=== PATIENT | female | born 1955 | race Caucasian/White ===

== ENCOUNTER → 2016-03-03 | Outpatient (CLI) | payer BC ==
[2016-03-03 18:04] LABS: ALT/SGPT 44 U/L (12-78); AST/SGOT 33 U/L (15-37); BLOOD UREA NITROGEN 23 mg/dl (7-18); BUN/CREATININE RATIO 19.3 (10-20); CARBON DIOXIDE 29 mmol/L (21-32); CHLORIDE 102 mmol/L (98-107); GLUCOSE 122 mg/dl (70-99); POTASSIUM 4.9 mmol/L (3.5-5.1); SODIUM 140 mmol/L (136-145)
[2016-03-03 18:05] LABS: BASO % 0.5 %; BASO ABS # 0.02 K/uL (0-0.2); COMPLETE YES; HEMATOCRIT 38.1 % (37-47); IG% 0.3 %; LYMPH % 39.4 %; LYMPH ABS # 1.57 K/uL (1.2-3.4); MEAN CELL VOLUME 89.4 fL (80-100); MEAN CORPUSCULAR HEMOGLOBIN 30.3 pg (25-34); MEAN CORPUSCULAR HGB CONC 33.9 g/dl (32-36); MEAN PLATELET VOLUME 9.2 fL (7.4-10.4); MONO % 9.8 %; PLATELET COUNT 297 K/uL (130-400); RED BLOOD COUNT 4.26 M/uL (4.2-5.4); WHITE BLOOD COUNT 3.98 K/uL (4.8-10.8)
[2016-03-03 18:13] LABS: ALKALINE PHOSPHATASE 167 U/L (45-117); CHOLESTEROL 208 mg/dl (0-200); FERRITIN 94.1 ng/ml (8.0-388.0); HDL CHOLESTEROL 69 mg/dl; LDL CHOLESTEROL CALCULATED 104 mg/dl; TRIGLYCERIDES 175 mg/dl (0-150); VERY LOW DENSITY LIPOPROT CALC 35 mg/dl
== END | disposition home or self-care (01) ==
LOC: C.LABMFLN 08:47
PROVIDERS: ATTEND Family Medicine
DX: Z98.84 Bariatric surgery status (principal); I10 Essential (primary) hypertension; E04.1 Nontoxic single thyroid nodule

== ENCOUNTER → 2016-03-28 | Outpatient (CLI) | payer BC ==
--- NOTE | 2016-03-28 12:10 | DIAGNOSTIC IMAGING REPORT ---
MRI OF THE LUMBAR SPINE WITHOUT IV CONTRAST CLINICAL HISTORY: Low back pain and lower extremity numbness. COMPARISON STUDY: No priors. TECHNIQUE: MRI of the lumbar spine is performed utilizing various T1 and T2-weighted sequences in the axial and sagittal planes. IV contrast was not administered for this examination. The examination is degraded by open MRI technique. FINDINGS: Lumbar spine: Vertebral body height and alignment are maintained throughout the lumbar spine. Normal marrow signal intensity is preserved throughout the visualized bony structures. A large hemangioma is present in the body of L3. No destructive bony lesion is seen. There is no evidence of spondylolysis. The transverse and spinous processes appear intact. Intervertebral discs: There is moderate degenerative disc desiccation throughout the lumbar spine. The disc spaces appear preserved. Spinal cord: Partially imaged spinal cord is normal in morphology and signal intensity. The conus medullaris terminates at the level of L1-L2. L1-L2: There is minimal posterior disc bulge. The central canal and neural foramina are patent. L2-L3: Unremarkable. L3-L4: There is a small posterior disc bulge. There is no significant central canal stenosis. The neural foramina are patent. Minimal facet arthropathy is of no consequence. L4-L5: There is broad-based posterior disc bulge with annular fissure. In conjunction with hypertrophy of the ligamentum flavum, there is mild to moderate central canal stenosis at this level with a minimum AP diameter of 7 mm. There is bilateral subarticular stenosis. The neural foramina are patent. Mild facet arthropathy is of no consequence. L5-S1: There is minimal posterior disc bulge. The central canal and neural foramina are patent. There is mild bilateral subarticular stenosis. Facet arthropathy causes minimal bilateral neural foraminal stenosis. Sacrum: The partially imaged sacrum is normal in morphology and signal intensity. A Tarlov's cyst is seen at the level of S3 and measures up to 2.2 cm. Soft tissues: There is mild fatty atrophy of the paraspinous musculature. The partially imaged retroperitoneal structures are grossly unremarkable, but incompletely assessed. IMPRESSION: 1. Lumbosacral spondylosis as above with mild to moderate acquired compromise of the central canal at L4-L5. See discussion for detailed level by level analysis. 2. No destructive bony lesion is identified. Dictated: 03/28/2016 11:59 AM Transcribed: 03/28/2016 12:09 PM LILO_Harpreet Electronically signed by: Mac Jauregui M.D. 03/28/2016 12:10 PM Dictated Date/Time: 03/28/2016 11:59 AM
== END | disposition home or self-care (01) ==
LOC: C.OPENMRI 09:53
PROVIDERS: ATTEND Family Medicine
DX: M48.00 Spinal stenosis, site unspecified (principal); M47.817 Spondylosis without myelopathy or radiculopathy, lumbosacral region

== ENCOUNTER → 2016-07-22 | Outpatient (CLI) | payer BC ==
[2016-07-22 13:34] LABS: BLOOD UREA NITROGEN 21 mg/dl (7-18)
[2016-07-22 13:42] LABS: ESTIMATED AVERAGE GLUCOSE 126 mg/dl; HA1C FLAG Normal (Normal)
== END ==
LOC: C.LABMFLN 12:08
PROVIDERS: ATTEND Family Medicine
DX: R73.01 Impaired fasting glucose (principal)

== ENCOUNTER → 2016-07-27 | Outpatient (CLI) | payer BC ==
[~2016-07-27] MED LIST: GADAVIST IV PRN
--- NOTE | 2016-07-27 12:11 | DIAGNOSTIC IMAGING REPORT ---
CERVICAL SPINE MRI WITH AND WITHOUT CONTRAST HISTORY: CHRONIC NECK PAIN TECHNIQUE: Multiplanar multisequence MRI of the cervical spine was performed both before and after the use of intravenous contrast. COMPARISON STUDY: None. FINDINGS: Anterior cervical discectomy and fusion seen from C5 through C7. No fracture or subluxation within the cervical spine. A 6 mm hemangioma at the C3 vertebral body. Prevertebral soft tissues and the C1-C2 interval are intact. Mild disc space narrowing at C4-C5. The visualized posterior fossa is unremarkable. The cervical spinal cord demonstrates a normal signal intensity. No abnormal enhancement. C2-C3: No significant central canal or neural foraminal narrowing. C3-C4: Small broad-based posterior disc bulge without significant central canal narrowing. There is mild right-sided neural foraminal narrowing. C4-C5: Small broad-based posterior disc bulge with a small right paracentral focal disc protrusion which abuts and slightly deforms the right anterior cord. There is also mild bilateral neural foraminal narrowing. C5-C6: No significant central canal narrowing. Severe right-sided neural foraminal narrowing due to the uncovertebral and facet hypertrophy. C6-C7: No significant central canal narrowing. Mild right neural from narrowing due to the uncovertebral hypertrophy. C7-T1: No significant central canal or neural foraminal narrowing. IMPRESSION: 1. Anterior cervical discectomy and fusion from C5 through C6. 2. Small broad-based posterior disc bulge with a small right paracentral focal disc protrusion at C4-C5. This abuts and slightly deforms anterior cord. 3. Multilevel bilateral neural foraminal narrowing as described above. Electronically signed by: Ricardo Rocha M.D. 07/27/2016 12:09 PM Dictated Date/Time: 07/27/2016 11:58 AM
== END | disposition home or self-care (01) ==
LOC: C.OPENMRI 09:55
PROVIDERS: ATTEND Family Medicine
DX: M54.2 Cervicalgia (principal)

== ENCOUNTER → 2016-08-05 | Outpatient (CLI) | payer BC ==
[2016-08-05 18:16] LABS: BLOOD UREA NITROGEN 41 mg/dl (7-18); BUN/CREATININE RATIO 22.7 (10-20); CALCIUM 8.7 mg/dl (8.5-10.1); CARBON DIOXIDE 23 mmol/L (21-32); CHLORIDE 110 mmol/L (98-107); GLUCOSE 135 mg/dl (70-99); POTASSIUM 4.4 mmol/L (3.5-5.1); SODIUM 141 mmol/L (136-145)
== END | disposition home or self-care (01) ==
LOC: C.LABMFLN 13:40
PROVIDERS: ATTEND Family Medicine
DX: E86.0 Dehydration (principal)

== ENCOUNTER → 2016-08-15 | Outpatient (CLI) | payer BC ==
[2016-08-15 14:18] LABS: BLOOD UREA NITROGEN 17 mg/dl (7-18); BUN/CREATININE RATIO 15.7 (10-20); CALCIUM 8.6 mg/dl (8.5-10.1); CARBON DIOXIDE 24 mmol/L (21-32); CHLORIDE 112 mmol/L (98-107); GLUCOSE 102 mg/dl (70-99); POTASSIUM 4.8 mmol/L (3.5-5.1); SODIUM 144 mmol/L (136-145)
[2016-08-15 14:19] LABS: RHEUMATOID FACTOR < 10.0 U/mL (0-15)
== END | disposition home or self-care (01) ==
LOC: C.LABMFLN 09:52
PROVIDERS: ATTEND Family Medicine
DX: N28.9 Disorder of kidney and ureter, unspecified (principal); M25.50 Pain in unspecified joint

== ENCOUNTER → 2016-08-22 | Outpatient (CLI) | payer BC ==
[2016-08-22 18:40] LABS: BLOOD UREA NITROGEN 23 mg/dl (7-18); BUN/CREATININE RATIO 19.3 (10-20); CALCIUM 9.1 mg/dl (8.5-10.1); CARBON DIOXIDE 26 mmol/L (21-32); CHLORIDE 107 mmol/L (98-107); GLUCOSE 93 mg/dl (70-99); POTASSIUM 5.3 mmol/L (3.5-5.1); SODIUM 139 mmol/L (136-145)
[2016-08-22 18:41] LABS: PHOSPHORUS 3.4 mg/dl (2.5-4.9)
== END | disposition home or self-care (01) ==
LOC: C.LABMFLN 16:51
PROVIDERS: ATTEND Family Medicine
DX: R73.01 Impaired fasting glucose (principal); K90.9 Intestinal malabsorption, unspecified; E53.8 Deficiency of other specified B group vitamins; E55.9 Vitamin D deficiency, unspecified

== ENCOUNTER → 2016-08-25 | Outpatient (CLI) | payer BC ==
[2016-08-25 18:30] LABS: POTASSIUM 4.9 mmol/L (3.5-5.1)
[2016-08-25 18:39] LABS: FERRITIN 39.3 ng/ml (8.0-388.0)
== END | disposition home or self-care (01) ==
LOC: C.LABMFLN 16:18
PROVIDERS: ATTEND Family Medicine
DX: I10 Essential (primary) hypertension (principal); D50.9 Iron deficiency anemia, unspecified

== ENCOUNTER → 2016-09-22 | Outpatient (CLI) | payer BC ==
--- NOTE | 2016-09-22 11:49 | DIAGNOSTIC IMAGING REPORT ---
(CHEST) THORAX WITHOUT CT DOSE: 760.90 mGycm HISTORY: Abnormal bone scan LUNG INFILTRATE ON CT TECHNIQUE: Multiaxial CT images of the chest were performed without contrast. A dose lowering technique was utilized adhering to the principles of ALARA. COMPARISON: None. Outside studies are not available for comparison. FINDINGS: The lungs are clear. The mediastinal vascular structures are within normal limits. No mediastinal or hilar lymphadenopathy. No pleural effusion or pneumothorax. Limited views of the upper abdomen demonstrate a normal liver and spleen. Postoperative changes to the distal esophagus and stomach. Prior cholecystectomy. Prior gastric banding procedure. 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 IMPRESSION: Postoperative changes as described. No acute process of the chest. The above report was generated using voice recognition software. It may contain grammatical, syntax or spelling errors. Electronically signed by: Josse Gann M.D. 09/22/2016 11:48 AM Dictated Date/Time: 09/22/2016 11:43 AM
== END | disposition home or self-care (01) ==
LOC: C.CTS 11:29
PROVIDERS: ATTEND Family Medicine
DX: R91.8 Other nonspecific abnormal finding of lung field (principal)

== ENCOUNTER → 2016-10-13 | Outpatient (CLI) | payer BC ==
[2016-10-13 13:20] LABS: BLOOD UREA NITROGEN 20 mg/dl (7-18)
== END | disposition home or self-care (01) ==
LOC: C.LABMFLN 10:47
PROVIDERS: ATTEND Physician Assistant
DX: R25.1 Tremor, unspecified (principal)

== ENCOUNTER → 2016-10-19 | Outpatient (CLI) | payer BC ==
--- NOTE | 2016-10-19 09:01 | DIAGNOSTIC IMAGING REPORT ---
BRAIN COMBO CLINICAL HISTORY: 61 years-old Female presenting with TREMOR in both arms and hands, R/O STROKE. TECHNIQUE: Multisequence, multiplanar MR imaging of the brain was performed before and after the administration of intravenous contrast. IV contrast: 13 mL of Gadavist. COMPARISON: None. FINDINGS: Ventricles and sulci normal in size. Scattered subcortical white matter T2/FLAIR hyperintensity, nonspecific but possibly chronic small vessel ischemic change. No mass effect or midline shift. No hemorrhage or acute territorial infarct. No extra-axial fluid collection. T2 skull base flow voids preserved. No abnormal parenchymal enhancement. Bone marrow signal intensity within the calvarium within normal limits. IMPRESSION: 1. No acute intracranial abnormality. No abnormal enhancement. 2. Nonspecific foci of T2/FLAIR subcortical hyperintensity likely chronic small vessel ischemic change. Electronically signed by: Chandrakant Patel M.D. 10/19/2016 9:00 AM Dictated Date/Time: 10/19/2016 8:57 AM
== END | disposition home or self-care (01) ==
LOC: C.MRI 10-13 11:47
PROVIDERS: ATTEND Physician Assistant
DX: R25.1 Tremor, unspecified (principal)

== ENCOUNTER → 2016-11-11 | Outpatient (CLI) | payer BC ==
[2016-11-17 03:35] LABS: IGA SERUM 191 mg/dL (81-463); TIS TRANS IGA 1 U/mL (<4)
== END | disposition home or self-care (01) ==
LOC: C.LABMFLN 14:01
PROVIDERS: ATTEND Family Medicine
DX: R14.0 Abdominal distension (gaseous) (principal)

== ENCOUNTER → 2017-06-09 | Outpatient (CLI) | payer BC ==
[2017-06-09 12:35] LABS: BASO % 0.7 %; BASO ABS # 0.03 K/uL (0-0.2); EOS % 2.5 %; EOS ABS # 0.11 K/uL (0-0.5); HEMATOCRIT 36.9 % (37-47); HEMOGLOBIN 12.2 g/dL (12.0-16.0); IG# 0.01 K/uL (0.00-0.02); LYMPH % 35.5 %; LYMPH ABS # 1.57 K/uL (1.2-3.4); MEAN CORPUSCULAR HEMOGLOBIN 30.4 pg (25-34); MEAN CORPUSCULAR HGB CONC 33.1 g/dl (32-36); MEAN PLATELET VOLUME 9.6 fL (7.4-10.4); MONO % 6.6 %; MONO ABS # 0.29 K/uL (0.11-0.59); NEUT % 54.5 %; NEUT ABS # 2.41 K/uL (1.4-6.5); PLATELET COUNT 288 K/uL (130-400); RED CELL DISTRIBUTION WIDTH CV 13.2 % (11.5-14.5); RED CELL DISTRIBUTION WIDTH SD 44.3 fL (36.4-46.3); WHITE BLOOD COUNT 4.42 K/uL (4.8-10.8)
[2017-06-09 13:12] LABS: HEMOGLOBIN A1C 5.6 % (4.5-5.6)
[2017-06-09 13:38] LABS: ALBUMIN 3.5 gm/dl (3.4-5.0); ALT/SGPT 30 U/L (12-78); AST/SGOT 23 U/L (15-37); BLOOD UREA NITROGEN 18 mg/dl (7-18); CARBON DIOXIDE 26 mmol/L (21-32); CREATININE 1.24 mg/dl (0.60-1.20); GLUCOSE 113 mg/dl (70-99); POTASSIUM 4.9 mmol/L (3.5-5.1); SODIUM 137 mmol/L (136-145)
[2017-06-09 13:42] LABS: ALKALINE PHOSPHATASE 144 U/L (45-117); CHOLESTEROL 181 mg/dl (0-200); LDL CHOLESTEROL CALCULATED 87 mg/dl; TOTAL PROTEIN 6.9 gm/dl (6.4-8.2); TRANSFERRIN 261 mg/dl (200-360)
== END | disposition home or self-care (01) ==
LOC: C.LABMFLN 10:22
PROVIDERS: ATTEND Family Medicine
DX: I10 Essential (primary) hypertension (principal); Z98.84 Bariatric surgery status; R73.01 Impaired fasting glucose; E53.8 Deficiency of other specified B group vitamins; D50.9 Iron deficiency anemia, unspecified; E55.9 Vitamin D deficiency, unspecified

== ENCOUNTER 2019-02-05 07:20 | Observation (INO) ==
--- NOTE | 2019-01-31 10:16 | Anesthesiology Consultation ---
Date of Service January 31, 2019 Assessment & Plan (1) Encounter for pre-operative examination: Chart Review Chart Review: Acceptable Risk for Surgery and Patient NOT seen in Pre Admission Testing Consults Requested none History Surgery Operation Date: 02/04/19 10:45 Proposed Procedures p Right Breast Lumpectomy with Needle Localization and with Right [place] Lymph Node Biopsy - Deion Wade MD, FACS Height/Weight Height: 5 ft 8 in Weight: 131.542 kg Allergies Allergy/AdvReac Type Severity Reaction Status Date / Time pregabalin [From Lyrica] Allergy Intermediate finger, Verified 01/30/19 13:18 wrist and ankles swelling capsaicin Allergy Mild Kidney Verified 01/30/19 13:18 problems - pt unaware diclofenac Allergy Mild Kidney Verified 01/30/19 13:18 problems - pt unaware Diclopak Allergy Mild Kidney Unverified 10/03/17 10:16 problems adhesive Allergy Unknown RASH Verified 01/30/19 13:18 levofloxacin Allergy Unknown Unknown Verified 01/30/19 13:18 hydromorphone AdvReac Severe Vomiting Verified 01/30/19 13:18 meperidine [From Demerol] AdvReac Severe Vomiting Verified 01/30/19 13:18 Medications Home Medications Medication Instructions Recorded Confirmed Last Taken cholecalciferol (vitamin D3) 50,000 units PO 2XWK #90 cap 08/27/18 01/30/19 Unknown 50,000 unit capsule albuterol sulfate 90 mcg/actuation 2 puffs INHALATION Q4H PRN #18 gm 10/30/18 01/30/19 Unknown aerosol inhaler propranolol 80 mg capsule,24 80 mg PO HS #90 cap 10/30/18 01/30/19 Unknown hr,extended release metformin 500 mg tablet,extended 500 mg PO BID #180 tab 12/04/18 01/30/19 Unknown release 24 hr ascorbic acid (vitamin C) [Vitamin 1 g PO QAM 01/29/19 01/30/19 Unknown C] biotin 1 mg PO DAILY 01/29/19 01/30/19 Unknown duloxetine 30 mg PO HS 01/29/19 01/30/19 Unknown duloxetine 60 mg PO QAM 01/29/19 01/30/19 Unknown enalapril maleate [Vasotec] 10 mg PO QAM 01/29/19 01/30/19 Unknown esomeprazole magnesium 20 mg PO QAM 01/29/19 01/30/19 Unknown mirabegron 50 mg PO HS 01/29/19 01/30/19 Unknown multivitamin 1 tab PO DAILY 01/29/19 01/30/19 Unknown solifenacin [Vesicare] 10 mg PO QAM 01/29/19 01/30/19 Unknown triamterene-hydrochlorothiazid 1 cap PO QAM 01/29/19 01/30/19 Unknown [Dyazide] Past Medical History Medical History Anemia hx Anxiety Arthralgia of multiple sites Bilateral sacroiliitis (Chronic) Breast cancer Right Cervical myelopathy Cervicalgia (Chronic) Chronic back pain Depression (Chronic) Fibromyalgia (Chronic) GERD (gastroesophageal reflux disease) (Chronic) Hypertension (Chronic) Lumbago (Chronic) Lumbar spinal stenosis (Chronic) Multifactorial worst at L4-5 Mixed incontinence urge and stress (Chronic) Morbid obesity with BMI of 45.0-49.9, adult (Chronic) Osteoarthritis (Chronic) Peripheral neuropathy bilateral legs (beginning stages) Pre-diabetes metformin bid 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) Thyroid nodule (Acute) Tremor (Chronic) propranolol daily Past Family History Family History Mother Myocardial infarction Hypertension Diabetes Father Hypertension Diabetes Heart disease Cancer skin Grandmother (Paternal) Colorectal cancer Past Surgical History Surgical History H/O gastric bypass (Resolved) History of arthroplasty of both knees (Resolved) Left-2006, Right- 07/2013 History of section (Resolved) x2 History of colonoscopy History of esophagogastroduodenoscopy (EGD) History of tonsillectomy Hx of laparoscopic gastric banding "band over bypass surgery" -- still in place but had been "unfilled" d/t severe heartburn. states port has come apart and is near rib cage, (her pcp aware) S/P breast biopsy (Resolved) Right S/P cervical spinal fusion (Resolved) ACDF --> C5-C6, C6-C7 (limited to the right, pain with lifting and looking up to cesar) S/P cholecystectomy (Resolved) S/P dilation and curettage S/P epidural steroid injection S/P thyroid biopsy Status post gastric bypass for obesity (Chronic) Social History Smoking Status: Never smoker Do You Dip or Chew Tobacco: No Hx Alcohol Use: No Hx Substance Use: No substance use type: does not use Testing Laboratory Results Laboratory Tests 01/09/19 01/09/19 01/09/19 09:37 09:37 09:37 WBC 6.66 Hgb 12.0 Hct 36.4 L Plt Count 327 PT 10.3 INR 1.0 APTT 27.3 Sodium 138 Potassium 4.4 Chloride 105 Carbon Dioxide 22 BUN 36 H Creatinine 1.38 H Glucose 107 H Hemoglobin A1c TSH 1.710 Free T4 1.35 01/09/19 09:37 WBC Hgb Hct Plt Count PT INR APTT Sodium Potassium Chloride Carbon Dioxide BUN Creatinine Glucose Hemoglobin A1c 6.1 H TSH Free T4 Electrocardiogram Date: 01/30/19 Findings: + NSR @ Chest X-Ray Date: 06/27/18 Findings: + NAD
[~2019-02-05 07:20] MED LIST changes: +CLINDAMYCIN 900 MG / 50ML D5W IV SCH; -GADAVIST IV PRN; +LR 15ML/HR IV SCH
--- NOTE | 2019-02-05 08:54 | Nuclear Medicine Report ---
NM sentinel node inject only CLINICAL HISTORY: RIGHT BREAST CA COMPARISON STUDY: Diagnostic mammogram January 28, 2019. PROCEDURE: Patient presents today for right breast lymphoscintigraphy. The procedure, risks and benef its were discussed with the patient and informed consent was obtained. The procedure was performed by Dr. Chakraborty following a timeout. Skin of the right breast was prepped. A total of 0.482 mCi of Lym phoseek was injected at 8:25 AM on February 05, 2019 in 5 intradermal aliquots within a right periare olar distribution. The patient tolerated the procedure well and no immediate complications were evide nt. No imaging was requested at this time. IMPRESSION: Right breast lymphoscintigraphy as described above. Electronically signed by: Chetan Chakraborty M.D. 02/05/2019 8:51 AM
[2019-02-05] MEDS ORDERED: METHYLENE BLUE 0.5% 10 ML VIAL ONE (09:43)
[2019-02-05] MEDS ORDERED: BUPIVACAINE 0.5 % 5 MG/1 ML MPF 30ML VIAL ONE (09:43)
[2019-02-05] MEDS ORDERED: MIDAZOLAM HCL 1 MG/ML 2ML VIAL ONE (10:39)
[2019-02-05] MEDS ORDERED: DEXAMETHASONE SOD INJ 4 MG/ML VIAL ONE (10:39)
[2019-02-05] MEDS ORDERED: fentaNYL citrate 100 MCG/2 ML VIAL ONE ×2 (10:39→13:05)
[2019-02-05] MEDS ORDERED: ONDANSETRON INJ 2 MG/ML 2 ML VIAL ONE (10:39)
[2019-02-05] MEDS ORDERED: PROPOFOL IV EMULSION 10 MG/ML 20 ML VIAL IV ONE (10:39)
[2019-02-05] MEDS ORDERED: LIDOCAINE HCL 2% 2 ML VIAL/AMP(20MG/ML) INFIL ONE (10:39)
--- NOTE | 2019-02-05 11:40 | History & Physical Bridge Note ---
Date of Service February 05, 2019 History & Physical Bridge Note I have examined the patient, reviewed the History & Physical and in the interval since the performance of the History & Physical I have noted the following changes of clinical significance: no changes noted
[2019-02-05] MEDS ORDERED: DEXAMETHASONE SOD INJ 4 MG/ML VIAL IV PRN (11:46)
[2019-02-05] MEDS ORDERED: ePHEDrine sulfate 50 MG/ML AMP IV PRN (11:46)
[2019-02-05] MEDS ORDERED: fentaNYL citrate 100 MCG/2 ML VIAL IV PRN (11:46)
[2019-02-05] MEDS ORDERED: ONDANSETRON INJ 2 MG/ML 2 ML VIAL IV PRN ×2 (11:46→14:48)
[2019-02-05] MEDS ORDERED: ATROPINE SULFATE 0.1 MG/ML 10ML SYR IV PRN (11:46)
[2019-02-05] MEDS ORDERED: METOCLOPRAMIDE HCL INJ 5 MG/ML 2 ML VIAL IV PRN (11:46)
[2019-02-05] MEDS ORDERED: PROMETHAZINE HCL 12.5 MG in SODIUM CHLORIDE 0.9% 50 ML IV PRN ×2 (11:46→14:48)
[2019-02-05] MEDS ORDERED: ePHEDrine sulfate 50 MG/ML SYR ONE (12:20)
[2019-02-05] MEDS ORDERED: KETOROLAC 30 MG/ML VIAL ONE (12:52)
[2019-02-05] MEDS ORDERED: ACETAMINOPHEN 1,000 MG/100 ML VIAL IV STA (13:36)
--- NOTE | 2019-02-05 13:36 | Post Operative Brief Note ---
PG Immediate Post Op with CF Date of Surgery February 05, 2019 Pre & Post Diagnosis Operation Date: 02/05/19 12:00 Pre-Op Diagnosis: Right Breast Cancer Post-Op Diagnosis: Right Breast Cancer I identified the patient and participated in the time-out.: Yes Procedure Operation Date: 02/05/19 12:00 Actual Procedures p Right Breast Lumpectomy with Needle Localization and with Right [place] Lymph Node Biopsy(Right) - Deion Wade MD, FACS Surgeon Deion Wade MD, FACS [employer]borne Weapons Technical Manager Elva Boyle Estimated Blood Loss 20 Findings Consistent with Post-Op Diagnosis Specimens Specimen Description: Frozen 1. Right [place] Lymph Node Fresh A. Right Breast Tissue, Needle lateral, tip medial/retro areolar, short silk superior, long silk inferior B. Additional superior Medial Inferior right breast tissue, Short Silk Superior, Long Silk Inferior, Methylene Blue David Granger C. Right Axillary Tissue Drains Micheal-Henson Drain (15fr)
--- NOTE | 2019-02-05 13:52 | Post Operative Brief Note ---
PG Immediate Post Op with CF Date of Surgery February 05, 2019 Pre & Post Diagnosis Operation Date: 02/05/19 12:00 Pre-Op Diagnosis: Right Breast Cancer Post-Op Diagnosis: Right Breast Cancer I identified the patient and participated in the time-out.: Yes Procedure Operation Date: 02/05/19 12:00 Actual Procedures p Right Breast Lumpectomy with Needle Localization and with Right [place] Lymph Node Biopsy(Right) - Deion Wade MD, FACS Axillary Dissection Surgeon Deion Wade MD, FACS Group Counselor Elva Boyle Estimated Blood Loss 20 Findings Consistent with Post-Op Diagnosis Specimens Specimen Description: Frozen 1. Right [place] Lymph Node Fresh A. Right Breast Tissue, Needle lateral, tip medial/retro areolar, short silk superior, long silk inferior B. Additional superior Medial Inferior right breast tissue, Short Silk Superior, Long Silk Inferior, Methylene Blue David Granger C. Right Axillary Tissue Drains Micheal-Henson Drain (15fr)
--- NOTE | 2019-02-05 14:18 | Operative Report ---
DATE OF OPERATION: 02/05/2019 NAME OF OPERATION: Right breast lumpectomy with right sentinel lymph node biopsy and right axillary dissection. PREOPERATIVE DIAGNOSIS: Right breast cancer. POSTOPERATIVE DIAGNOSIS: Right breast cancer with metastatic lymph node. STAFF SURGEON: Deion Wade MD. CRYOGENICS REPAIRER: Pablo Boyle PA-C. ANESTHESIA: General. DESCRIPTION OF PROCEDURE: The patient was brought in the operating room and placed on the operating table in supine position. The right arm was extended on an arm board. She had undergone needle localization and also injection for sentinel lymph node biopsy. Using the Neoprobe, incision was made in the right axillary area using 0.5% plain Marcaine to anesthetize the skin, carrying dissection very deep down into the axilla, sending the lymph node for frozen section. It was very deep secondary to adipose tissue. During the frozen section, lumpectomy was performed, excising the right breast tissue. It was marked with the needle lateral, needle tip medial and retroareolar, short silk suture superior, long silk suture inferior. Additional tissue was taken, which was superior, medial and inferior. It was marked with a short silk suture superior, long silk suture inferior and methylene blue new margin. [place] lymph node came back positive with cancer cells. Axillary dissection was then performed with the tissue sent for permanent section. A 15-round drain placed into the right axilla and secured to the skin using 3-0 nylon suture. Deep tissue in both wounds closed using 2-0 plain suture. Axillary skin closed using interrupted 4-0 nylon suture. Breast skin closed using subcuticular 4-0 Monocryl and Steri-Strips. Dressings were applied and patient was transferred to recovery room in stable condition. I attest to the content of the Intraoperative Record and any orders documented therein. Any exception s are noted below.
--- NOTE | 2019-02-05 14:20 | Operative Report ---
DATE OF OPERATION: 02/05/2019 Addendum to the right breast surgery: The addendum is that my legal assistant Pablo Boyle PA-C helped with prepping, draping, removal of the breast and axillary tissue and closure of the wounds. I attest to the content of the Intraoperative Record and any orders documented therein. Any exception s are noted below.
[2019-02-05] MEDS ORDERED: MoRPHine SULFATE 4 MG/ML 1 ML CARP\\VIAL IV PRN (14:48)
[2019-02-05] MEDS ORDERED: SODIUM CHLORIDE 0.9% 1000ML 1,000 ML IV SCH (14:48)
[2019-02-05] MEDS ORDERED: MoRPHine SULFATE 2 MG/ML CARP IV PRN (14:48)
[2019-02-05] MEDS ORDERED: PROMETHAZINE HCL 25 MG in SODIUM CHLORIDE 0.9% 50 ML IV PRN (14:48)
[2019-02-05] MEDS ORDERED: IBUPROFEN 600 MG TAB PO PRN (14:48)
[2019-02-05] MEDS ORDERED: ALBUTEROL HFA 8 GM INHALER INH PRN (14:48)
[2019-02-05] MEDS ORDERED: ACETAMINOPHEN 325 MG TAB PO PRN (14:48)
--- NOTE | 2019-02-05 15:21 | Anesthesiology Progress Note ---
Date of Service February 05, 2019 Anesthesia Post Procedure Vital Signs Vital Signs: Temp Pulse Pulse Resp BP BP Pulse Ox 02/05/19 15:12 36.6 C 71 16 144/74 H 96 02/05/19 14:48 36.6 C 75 16 153/77 H 93 02/05/19 14:30 36.6 C 69 19 150/71 H 94 02/05/19 14:20 71 16 144/71 H 94 02/05/19 14:05 75 20 146/76 H 97 02/05/19 13:55 74 14 160/73 H 100 02/05/19 13:47 36.9 C 74 21 141/68 H 100 02/05/19 09:12 37.1 C 65 18 147/77 H 99 Pain Intensity Right Breast: Pain Intensity: 0 Transfer of Care Handoff Completed per policy Notes Mental Status: alert / awake / arousable and participated in evaluation Patient Amnestic to Procedure: Yes Nausea / Vomiting: adequately controlled Pain: adequately controlled Airway Patency, RR, SpO2: stable & adequate BP & HR: stable & adequate Hydration State: stable & adequate Anesthetic Complications: no major complications apparent
[2019-02-05] MEDS: HYDROCODONE/ACETAMOPHEN 5/325MG TAB PO PRN ×4 (15:34→23:15)
--- NOTE | 2019-02-05 20:22 | History & Physical Report ---
Date of Service February 05, 2019 Assessment & Plan (1) Hypertension: Blood pressure fluctuating between 1 10 to 140 systolic We will only give propranolol tonight Hold lisinopril and triamterene until renal function testing is established, last creatinine was elevated at 1.34 in December Blood pressure is also not significantly elevated after the surgery. Discussed with patient and her , they understand that we will manage blood pressure meds slightly different (2) Breast cancer, right: Right Breast Lumpectomy with Needle Localization and with Right [place] Lymph Node Biopsy Tolerated procedure well (3) Tremor: We will give the propranolol which will help with blood pressures were (4) Hyperactivity of bladder: Restarted patient [facility] does not carry visit care but patient can take her own meds History of Present Illness Chief Complaint: Medical management Primary Care Provider: Mac Haddad MD 63 years old female with past medical history of essential hypertension, obesity, remote gastric bypass 17 years ago, and anxiety and recently was diagnosed with stage IA primary right breast upper outer quadrant T2, PN 0, M0, G2, ER status positive VT status positive, H ER2/mary status negative. She was admitted for an elective Right Breast Lumpectomy with Needle Localization and with Right [place] Lymph Node Biopsy, tolerated procedure well with no complication. Patient has multiple blood pressure medications. Also has hyperactive bladder on [facility] and Vesicare. She was inquiring about her meds and when and how to take them. We were consulted for medical management. Patient currently has no complaint, denies any diarrhea, burning sensation in the urine, chest pain or shortness of breath Allergies Allergy/AdvReac Type Severity Reaction Status Date / Time pregabalin [From Lyrica] Allergy Intermediate finger, Verified 01/30/19 13:18 wrist and ankles swelling capsaicin Allergy Mild Kidney Verified 01/30/19 13:18 problems - pt unaware diclofenac Allergy Mild Kidney Verified 01/30/19 13:18 problems - pt unaware Diclopak Allergy Mild Kidney Unverified 10/03/17 10:16 problems adhesive Allergy Unknown RASH Verified 01/30/19 13:18 levofloxacin Allergy Unknown Unknown Verified 01/30/19 13:18 hydromorphone AdvReac Severe Vomiting Verified 01/30/19 13:18 meperidine [From Demerol] AdvReac Severe Vomiting Verified 01/30/19 13:18 Home Medications Home Medications Medication Instructions Recorded Confirmed Type cholecalciferol (vitamin D3) 50,000 units PO 2XWK #90 cap 08/27/18 02/05/19 Rx 50,000 unit capsule albuterol sulfate 90 mcg/actuation 2 puffs INHALATION Q4H PRN #18 gm 10/30/18 02/05/19 Rx aerosol inhaler propranolol 80 mg capsule,24 80 mg PO HS #90 cap 10/30/18 02/05/19 Rx hr,extended release metformin 500 mg tablet,extended 500 mg PO BID #180 tab 12/04/18 02/05/19 Rx release 24 hr ascorbic acid (vitamin C) [Vitamin 1 g PO QAM 01/29/19 02/05/19 History C] biotin 1 mg PO DAILY 01/29/19 02/05/19 History duloxetine 30 mg PO HS 01/29/19 02/05/19 History duloxetine 60 mg PO QAM 01/29/19 02/05/19 History enalapril maleate [Vasotec] 10 mg PO QAM 01/29/19 02/05/19 History esomeprazole magnesium 20 mg PO QAM 01/29/19 02/05/19 History mirabegron 50 mg PO HS 01/29/19 02/05/19 History multivitamin 1 tab PO DAILY 01/29/19 02/05/19 History solifenacin [Vesicare] 10 mg PO QAM 01/29/19 02/05/19 History triamterene-hydrochlorothiazid 1 cap PO QAM 01/29/19 02/05/19 History [Dyazide] Past Med/Surg History Medical History Anemia hx Anxiety Arthralgia of multiple sites Bilateral sacroiliitis (Chronic) Breast cancer Right Cervical myelopathy Cervicalgia (Chronic) Chronic back pain Depression (Chronic) Fibromyalgia (Chronic) GERD (gastroesophageal reflux disease) (Chronic) Hypertension (Chronic) Lumbago (Chronic) Lumbar spinal stenosis (Chronic) Multifactorial worst at L4-5 Mixed incontinence urge and stress (Chronic) Morbid obesity with BMI of 45.0-49.9, adult (Chronic) Osteoarthritis (Chronic) Peripheral neuropathy bilateral legs (beginning stages) Pre-diabetes metformin bid 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 states port has come apart and is near rib cage, (her pcp aware) S/P breast biopsy (Resolved) Right S/P cervical spinal fusion (Resolved) ACDF --> C5-C6, C6-C7 (limited to the right, pain with lifting and looking up to cesar) S/P cholecystectomy (Resolved) S/P dilation and curettage S/P epidural steroid injection S/P thyroid biopsy Status post gastric bypass for obesity (Chronic) Family History Mother Myocardial infarction Hypertension Diabetes Father Hypertension Diabetes Heart disease Cancer skin Grandmother (Paternal) Colorectal cancer Social History Preferred Language: [place] Communication Ability: Effective Visual Impairment: No Limitations Hearing Ability: Normal X Ray Physician Required: No Beliefs That Will Affect Care: None marital status: Current Living Situation: Spouse current occupational status: disabled Other Information That Helps Us Care for You: No Feels Safe at Home: Yes Safety Concerns: Feels Safe At This Time Smoking Status: Never smoker Do You Dip or Chew Tobacco: No ; Second Hand Exposure: No ; Tobacco Cessation Education Requested by Patient: No Hx Alcohol Use: No Hx Substance Use: No Review of Systems Review of Systems: Review of system Constitutional: No fever / no chills / no sweats / no weakness / no fatigue Eyes: no blurring of vision / no eye pain / no discharge / no redness ENT: no hearing loss / no epistaxis /no swallowing problems Respiratory: no cough / no wheezing / no SOB / no hemoptysis Cardiovascular: no Chest pain / no lower extremity edema / no palpitation Abdomen: no pain / no nausea / no vomiting / no constipation Musculoskeletal: no joint pain / no muscle pain / no joint swelling Genitourinary: no dysuria / no incontinence / no urinary retention Neurologic: no focal weakness / no numbness/tingling / no ataxia Psychiatric: no depression symptoms / no anxiety / no insomnia Endocrine: no excessive thirst / no excessive urination Hematologic: no abnormal bleeding / no bruising / no LN swelling Skin: No rash / no pallor Physical Exam Physical Exam: Physical examination General patient appears to be comfortable, not in acute distress HEENT: Atraumatic , normocephalic /no jaundice /no pallor /anicteric /no dry mucous membrane /normal external ear inspection Neck: Supple /no swelling /central trach Heart: S1/S2 normal/regular rate and rhythm/no gallop /no rub /no murmur Lungs: Right breast incision covered, clear to auscultation bilaterally/normal chest with expansion/no rhonchi/no rales/no wheezing/no use of accessory muscles of respiration Abdomen: Soft/nontender/no guarding/no rebound/no organomegaly/no pulsatile mass Musculoskeletal: No swelling/no edema/no tenderness/normal range of motion Neuro exam: Awake alert oriented 3/cranial nerves II through XII appear to be intact/sensation intact/moves all extremities/no abnormal movements Psychiatric evaluation: No depressed mood/normal affect Skin: No rash on exposed skin area/no erythema Extremity: Normal pulse/no pitting edema/no clubbing or cyanosis Endocrine/lymphatic: No obvious lymphadenopathy /no lymphedema Results & Data Vital Signs (Past 12 Hours) Vital Signs Temp Pulse Pulse Resp BP BP Pulse Ox 02/05/19 19:10 37 C 88 20 110/66 93 02/05/19 16:28 73 18 124/63 96 02/05/19 15:12 36.6 C 71 16 144/74 H 96 02/05/19 14:48 36.6 C 75 16 153/77 H 93 02/05/19 14:30 36.6 C 69 19 150/71 H 94 02/05/19 14:20 71 16 144/71 H 94 02/05/19 14:05 75 20 146/76 H 97 02/05/19 13:55 74 14 160/73 H 100 02/05/19 13:47 36.9 C 74 21 141/68 H 100 02/05/19 09:12 37.1 C 65 18 147/77 H 99 Code Status & VTE Plan VTE Prophylaxis Plan VTE Prophylaxis will be ordered: Yes PG Care Time/CCT Total # of Minutes Spent Total Time Spent with Patient: 35 minutes total time spent is greater than 50% in coordination of care (as documented) at patient's floor/unit and/or counseling patient/family discussion of care with nursing staff (1) Breast cancer, right Breast location: unspecified site of breast Patient sex: female
--- NOTE | 2019-02-05 20:24 | Billing Data ---
Coding Level of Care Code 69402 Office/OBS Consult Lvl 2
[2019-02-05 20:37] LABS: BUN Creatinine Ratio 17.5 (10-20); Calcium 8.7 mg/dl (8.5-10.1); Creatinine Clr Calc Pharmacy 47.4 ml/min; Est GFR (African American) 34.6; Est GFR (Non-African American) 29.8; Potassium 4.9 mmol/L (3.5-5.1)
[2019-02-05] MEDS: CLINDAMYCIN 900 MG in DEXTROSE 5% 100 ML IV SCH (20:52)
[2019-02-05] MEDS ORDERED: DULOXETINE HCL 30 MG CAP PO SCH (21:00)
[2019-02-05] MEDS ORDERED: MIRABEGRON ER 25 MG TAB PO SCH ×2 (21:00)
[2019-02-05] MEDS ORDERED: PROPRANOLOL HCL LA 80 MG CAPCR PO SCH (21:00)
[2019-02-06] MEDS: CLINDAMYCIN 900 MG in DEXTROSE 5% 100 ML IV SCH ×2 (03:39→12:00)
[2019-02-06] MEDS: HYDROCODONE/ACETAMOPHEN 5/325MG TAB PO PRN ×3 (04:02→12:06)
[2019-02-06 07:03] LABS: Basophils # (auto) 0.01 K/uL (0-0.2); Basophils % (auto) 0.1 %; Eosinophils # (auto) 0.02 K/uL (0-0.5); Eosinophils % (auto) 0.2 %; Hematocrit (blood only) 30.7 % (37-47); Hemoglobin 10.2 g/dL (12.0-16.0); Immature Granulocytes # (auto) 0.01 K/uL (0.00-0.02); Immature Granulocytes % (auto) 0.1 %; Lymphocytes % (auto) 20.6 %; Mean Corpuscular Hgb Conc 33.2 g/dL (32-36); Mean Corpuscular Volume 90.3 fL (80-100); Mean Platelet Volume 8.7 fL (7.4-10.4); Monocytes # (auto) 0.58 K/uL (0.11-0.59); Neutrophils # (auto) 5.93 K/uL (1.4-6.5); Platelet Count 223 K/uL (130-400); RDW Coefficient of Variation 13.4 % (11.5-14.5); RDW Standard Deviation 44.3 fL (36.4-46.3); White Blood Count 8.25 K/uL (4.8-10.8)
--- NOTE | 2019-02-06 07:23 | Discharge Summary ---
DATE OF ADMISSION: 02/05/2019 DATE OF DISCHARGE: 02/06/2019 PRINCIPAL DIAGNOSIS: Right breast cancer. PROCEDURES: The patient underwent a right lumpectomy with right sentinel lymph node biopsy and axillary dissection. HISTORY OF PRESENT ILLNESS: The patient is a 63-year-old female with biopsy proven right breast cancer. She was brought into the hospital on 02/05/2019 where she underwent a right sentinel lymph node biopsy, right lumpectomy and then right axillary dissection. She did have positive lymph node on sentinel node. She has done quite well, has a drain in place and is felt stable for discharge home to be followed in the surgical clinic next week.
[2019-02-06 07:26] LABS: BUN Creatinine Ratio 18.3 (10-20); Calcium 8.8 mg/dl (8.5-10.1); Creatinine Clr Calc Pharmacy 51.4 ml/min; Est GFR (African American) 38.2; Est GFR (Non-African American) 32.9
[2019-02-06] MEDS ORDERED: TRIAMTERENE/HCTZ 37.5/25MG CAP PO SCH (09:00)
[2019-02-06] MEDS ORDERED: PANTOprazole 40 MG TAB PO SCH (09:00)
[2019-02-06] MEDS ORDERED: DULOXETINE HCL 60 MG CAP PO SCH (09:00)
[2019-02-06] MEDS ORDERED: ENALAPRIL MALEATE 10 MG TAB PO SCH (09:00)
--- NOTE | 2019-02-06 14:41 | Mammography Report ---
NEEDLE LOCALIZATION RIGHT BREAST: 02/05/2019 CLINICAL HISTORY: 63-year-old woman with recent biopsy-proven carcinoma in the 11:00 anterior right b reast. Patient presents for preoperative needle and wire localization prior to lumpectomy. COMPARISON: Comparison is made to exams dated: 02/05/2019 mammogram - [facility], 01/03/2019 mammogram, and 01/03/2019 ultrasound biopsy - [facility]. PATIENT CONSENT: The risks of the procedure were explained to the patient and informed consent was o btained both verbally and in writing. Specific risks include: Bleeding, infection, puncture of adjac ent structure, nontarget localization, sampling error, medication reaction. A timeout was performed in the right breast was confirmed as a site for preoperative localization. The patient denied eating or drinking anything this morning that would preclude anesthesia. PROCEDURE DESCRIPTION: The patient was positioned into an oblique left lateral decubitus position wit h right arm extended. The skin of the right upper outer breast was cleansed with Betadine and steril e drapes were placed. The subtle isoechoic mass with associated architectural distortion in the 11:0 0 right breast representing the recent biopsy-proven carcinoma was identified with ultrasound. 1% bu ffered Lidocaine without epinephrine was administered as local anesthesia. A 7.5cm Asif II needle and wire combination was inserted into the breast. Optimal positioning was confirmed and the wire was locked in place, leaving both the needle and wire within the breast, as per surgeon's preference. T he entire procedure including approach and needle length were discussed with the operating surgeon pr ior to surgery. The patient tolerated the procedure well and there was no immediate complication. S he was sent to the operating room in satisfactory condition. A surgical specimen radiograph was obtained which demonstrates the localizing needle and wire combina tion, ribbon-shaped biopsy marker and architectural distortion within the specimen. These findings a re compatible with successful preoperative localization and subsequent surgical excision. Final path ology is pending. IMPRESSION: NEEDLE LOCALIZATION Status post preoperative needle and wire localization for biopsy-proven carcinoma in the 11:00 anteri or right breast. The imaged specimen includes the intended abnormalities. Final surgical pathology is pending. Zenia Canseco M.D. ay/:02/05/2019 16:31:43 Company Laundry Worker: Zenia Canseco, [facility]; RT Debby,R, M, [facility]
== END 2019-02-06 12:36 | disposition home health service (06) ==
LOC: ASU 07:20 → 3W 07:20